=== PATIENT | male | born 2005 | race Hispanic/Latino ===

== ENCOUNTER 2025-08-10 23:23 | Emergency (ER) | payer OTHER ==
[2025-08-10] MEDS ORDERED: Droperidol 5 MG/2 ML VIAL ONE (23:39)
[2025-08-10 23:52] LABS: #Basophils 0.06 10x3/uL (0.0-0.2); #Eosinophils 0.36 10x3/uL (0.0-0.5); #Monocytes 0.79 10x3/uL (0.0-1.1); #Neutrophils 4.62 10x3/uL (1.5-8.4); %Basophils 0.5 % (0.0-2.0); %Eosinophils 3.3 % (0.0-6.0); %Lymphocytes 46.6 % (18.0-47.0); %Monocytes 7.2 % (0.0-10.0); %Neutrophils 42.1 % (40.0-75.0); Hematocrit 47.2 % (38.8-50.0); Hemoglobin 16.3 g/dL (13.5-17.5); Mean Corpuscular Hemoglobin 29.9 pg (27.0-33.0); Mean Corpuscular Volume 86.6 fL (81.2-95.1); Platelet Count 215 10x3/uL (150-450); Red Blood Cell (RBC) Count 5.45 10x6/uL (4.32-5.72); White Blood Cell (WBC) Count 10.97 10x3/uL (3.5-10.5)
[2025-08-11 00:06] LABS: ALT (SGPT) 51 U/L (Less than 45); AST (SGOT) 43 U/L (11-34); Albumin 4.8 g/dL (3.1-4.5); Alkaline Phosphatase 103 U/L (50-130); Anion Gap 17 mmol/L (10-20); BUN (Urea Nitrogen) 14 mg/dL (8.9-20.6); Bilirubin, Total 0.5 mg/dL (0.3-1.2); Calc. Creatinine Clearance 0 mL/min (70-130); Calcium 9.4 mg/dL (7.8-10.44); Carbon Dioxide 23 mmol/L (22-29); Chloride 111 mmol/L (98-107); Globulin 2.6 g/dL (2.4-3.5); Glucose 145 mg/dL (70-105); Potassium 3.3 mmol/L (3.5-5.1); Sodium 148 mmol/L (136-145)
[2025-08-11 00:07] LABS: Acetaminophen Less than 10 mcg/mL (Less than 10); Salicylate Less than 8.0 mg/dL (Less than 8.0)
[2025-08-11 03:42] LABS: Cocaine Metabolite Screen Negative (Negative); THC/Cannabinoid Screen Negative (Negative); Tricyclic Screen Negative (Negative)
== END 2025-08-11 03:36 | disposition home or self-care (01) ==
LOC: CSHERS 23:23
DX: F10.129 Alcohol abuse with intoxication, unspecified (principal); E86.0 Dehydration; R79.89 Other specified abnormal findings of blood chemistry; Y90.7 Blood alcohol level of 200-239 mg/100 ml
CPT/HCPCS: 36415; 80053; 80306; 80307; 83605; 85025; 96374; J1790